=== PATIENT | female | born 1985 ===

== ENCOUNTER 2021-08-05 05:35 | Day surgery (SDC) | payer OTHER ==
[~2021-08-05 05:35] MED LIST: FLONASE16 GM; VITAMIN C PO; ZYRTEC10 M3 PO
[2021-08-05] MEDS ORDERED: ACETAMINOPHEN-1 EAC2 PO (11:54)
[2021-08-05] MEDS ORDERED: TYLENOL325 M1 PO (11:57)
== END 2021-08-05 15:05 | disposition home or self-care (01) ==
LOC: CIR.AMB 05:35
PROVIDERS: ATTEND Obstetrics & Gynecology
DX: N83.291 Other ovarian cyst, right side (principal); N83.201 Unspecified ovarian cyst, right side; Z20.822 Contact with and (suspected) exposure to COVID-19; Z88.8 Allergy status to other drugs, medicaments and biological substances; J45.909 Unspecified asthma, uncomplicated; Z86.16 Personal history of COVID-19